=== PATIENT | male | born 1960 | race African-American/Black ===

== ENCOUNTER 2019-12-19 13:55 | Emergency (ER) | payer MEDICAID, OTHER ==
[~2019-12-19] VITALS: Ht 162.6 cm; Wt 72.0 kg
[2019-12-19] MEDS ORDERED: ASPIRIN 81MG TABLET PO ONE (18:30)
[2019-12-19] MEDS ORDERED: VISCOUS LIDOCAINE 2% 15 ML UDC PO ONE (18:30)
[2019-12-19] MEDS ORDERED: MAGNESIUM/ALUMINUM HYDROXIDE/SIMETHICONE 30ML UDC PO ONE (18:30)
[2019-12-19 18:37] LABS: EOSINOPHILS % 4.5 % (0.0-5.0); HEMATOCRIT. 40.8 % (42.0-52.0); LYMPHOCYTES % 19.2 % (20.0-50.0); MEAN CORPUSCULAR HEMOGLOBIN 32.2 pg (28.0-32.0); MEAN CORPUSCULAR VOLUME 94.3 fL (80.0-94.0); MEAN PLATELET VOLUME 8.5 fl (7.4-10.4); MONOCYTES % 9.3 % (2.0-8.0); PLATELET 286 x1000/uL (130-400); RED BLOOD CELL COUNT 4.33 mill/uL (4.7-6.1); RED CELL DISTRIBUTION WIDTH 13.6 % (11.6-14.6)
[2019-12-19 18:54] LABS: CHLORIDE 105 mEq/L (98-107)
[2019-12-19 18:58] LABS: ETHANOL BLOOD 85 mg/dL
[2019-12-19 19:48] VITALS: BP 138/88
== END 2019-12-19 20:32 | disposition home or self-care (01) ==
LOC: ER 13:55
DX: R07.89 Other chest pain (principal); I10 Essential (primary) hypertension; Z88.8 Allergy status to other drugs, medicaments and biological substances
CPT/HCPCS: 36415; 71045; 80053; 80320; 83690; 83880; 84484; 85025; 93005; 99285; Z7610; G0480

== ENCOUNTER 2020-09-05 19:39 | Emergency (ER) | payer MEDICAID ==
[~2020-09-05] VITALS: Ht 165.1 cm; Wt 77.0 kg
[2020-09-05] MEDS ORDERED: KETOROLAC 60MG/2ML VIAL IM ONE (20:15)
[2020-09-05] MEDS ORDERED: HYDROCODONE/ACETAMINOPHEN 10/325MG TABLET PO ONE (20:15)
[2020-09-05] MEDS ORDERED: CEFAZOLIN 1000MG PREMIX 50 ML IV ONE ×2 (20:45)
[2020-09-06] MEDS ORDERED: MORPHINE SULFATE 4 MG/ML CPJ (NOT FOR IM USE) IV ONE (01:15)
[2020-09-06] MEDS ORDERED: CEFAZOLIN 1000MG PREMIX 50 ML IV SCH (06:00)
[2020-09-06 06:08] VITALS: BP 146/74
== END 2020-09-06 06:12 | disposition left against medical advice (07) ==
LOC: ER 19:39
DX: S62.395B Other fracture of fourth metacarpal bone, left hand, initial encounter for open fracture (principal); S62.397B Other fracture of fifth metacarpal bone, left hand, initial encounter for open fracture; S66.822A Laceration of other specified muscles, fascia and tendons at wrist and hand level, left hand, initial encounter; Y07.499 Other family member, perpetrator of maltreatment and neglect; X99.8XXA Assault by other sharp object, initial encounter; Y93.89 Activity, other specified; Y92.480 Sidewalk as the place of occurrence of the external cause
CPT/HCPCS: 73130; 96365; 96372; 96375; 99284; J0690; J1885; J2270

== ENCOUNTER 2023-04-14 15:58 | Emergency (ER) | payer MEDICAID ==
[~2023-04-14] VITALS: Ht 172.7 cm; Wt 81.0 kg
[2023-04-14 16:10] VITALS: TEMP 98.3; O2SAT 100
[2023-04-14 17:45] VITALS: BP 205/117; PULSE 113; RESP 20
[2023-04-14] MEDS ORDERED: KETOROLAC 60MG/2ML VIAL IM ONE (17:45)
[2023-04-14] MEDS ORDERED: CYCLOBENZAPRINE 10MG TABLET PO ONE (17:45)
[2023-04-14] MEDS ORDERED: IBUP-2029 MT (18:21)
[2023-04-14] MEDS ORDERED: CYCL5TAB MT (18:21)
== END 2023-04-14 18:43 | disposition home or self-care (01) ==
LOC: ER 15:58
DX: S43.401A Unspecified sprain of right shoulder joint, initial encounter (principal); Z98.890 Other specified postprocedural states; X58.XXXA Exposure to other specified factors, initial encounter; Y93.89 Activity, other specified; Y92.89 Other specified places as the place of occurrence of the external cause; Y99.8 Other external cause status
CPT/HCPCS: 99283; 73030; 96372; J1885

== ENCOUNTER 2023-12-05 14:14 | Emergency (ER) | payer MEDICAID ==
[~2023-12-05] VITALS: Ht 165.1 cm; Wt 73.0 kg
[~2023-12-05 14:14] MED LIST: CYCL5TAB MT; IBUP-2029 MT
[2023-12-05 14:19] VITALS: O2SAT 98
[2023-12-05 14:53] LABS: EOSINOPHILS % 1.3 % (0.0-5.0); HEMATOCRIT. 41.7 % (42.0-52.0); HEMOGLOBIN. 14.4 g/dL (14.0-18.0); LYMPHOCYTES % 17.5 % (20.0-50.0); MEAN CORPUSCULAR HEMOGLOBIN 33.4 pg (28.0-32.0); MEAN CORPUSCULAR HGB CONC 34.5 g/dL (31.0-37.0); MEAN CORPUSCULAR VOLUME 96.6 fL (80.0-94.0); MEAN PLATELET VOLUME 8.2 fl (7.4-10.4); MONOCYTES % 10.1 % (2.0-8.0); NEUTROPHILS % 70.1 % (40.0-76.0); PLATELET 259 x1000/uL (130-400); RED BLOOD CELL COUNT 4.32 mill/uL (4.7-6.1); RED CELL DISTRIBUTION WIDTH 13.9 % (11.6-14.6); WHITE BLOOD COUNT 9.2 x1000/uL (4.5-11.0)
[2023-12-05 14:59] LABS: CHLORIDE 102 mEq/L (98-107); POTASSIUM 3.7 mEq/L (3.5-5.1); SODIUM 137 mEq/L (136-145)
[2023-12-05 15:00] LABS: CARBON DIOXIDE 28 mEq/L (21-32)
[2023-12-05 15:01] LABS: CALCIUM 9.7 mg/dL (8.7-10.4)
[2023-12-05 15:05] LABS: CREATININE 1.4 mg/dL (0.6-1.3); GLUCOSE 100 mg/dL (70-105); UREA NITROGEN BLOOD 11 mg/dL (9-23)
[2023-12-05 18:27] LABS: CLARITY URINE CLEAR (CLEAR); COLOR URINE YELLOW (YELLOW); GLUCOSE URINE NEGATIVE (NEGATIVE); KETONES URINE NEGATIVE (NEGATIVE); LEUKOCYTE ESTERASE URINE NEGATIVE (NEGATIVE); NITRITE URINE NEGATIVE (NEGATIVE); OCCULT BLOOD URINE TRACE (NEGATIVE); PROTEIN URINE NEGATIVE (NEGATIVE); SPECIFIC GRAVITY URINE 1.007 (1.005-1.030); UROBILINOGEN URINE 0.2 E.U./dL (0.2-1.0)
[2023-12-05 18:39] LABS: BACTERIA URINE NONE SEEN; RBC URINE 0-2 /hpf (0-2); SQUAMOUS EPITHELIAL CELL URINE RARE /lpf (RARE/1+); WBC URINE NONE SEEN /hpf (0-2)
[2023-12-05] MEDS: KETOROLAC 30MG/ML VIAL IV ONE (21:04)
[2023-12-05] MEDS: MORPHINE SULFATE 2 MG/ML CPJ (NOT FOR IM USE) IV ONE (21:05)
[2023-12-05] MEDS ORDERED: LIDO700A15 TP (21:53)
[2023-12-05] MEDS ORDERED: OXYC-100 MT (21:54)
[2023-12-05 22:30] VITALS: BP 160/99; PULSE 71; RESP 20; TEMP 98
== END 2023-12-05 22:30 | disposition home or self-care (01) ==
LOC: ER 15:10
DX: M25.511 Pain in right shoulder (principal); R42 Dizziness and giddiness; I10 Essential (primary) hypertension; F17.200 Nicotine dependence, unspecified, uncomplicated; Z98.890 Other specified postprocedural states; Z88.8 Allergy status to other drugs, medicaments and biological substances
CPT/HCPCS: 80048; 81003; 85025; 36415; 71045; 73030; 70450; 72125; 93005; 96374; 96375; 99285; J1885; J2270; Z7610